=== PATIENT | female | born 1945 | race Caucasian/White ===

== ENCOUNTER → 2017-01-31 | Outpatient (CLI) | payer MEDICARE, BC ==
--- NOTE | 2017-02-01 14:28 | CR ---
EXAM DATE: 01/31/17 PATIENT'S AGE: 71 Patient: ELAINE RIVERA Facility: [place], [place] Site . Site : 1945 Study: XRay Knee Left [id number]/26/2017 9:45:58 AM Ordering Physician: Wolf Barnes Final Report: HISTORY: Pain. Findings: Standing AP and PA views of both knees were obtained with lateral an sunrise views of the left knee. There is mild-moderate decrease in the medial joint spaces of both knees. There is spurring seen at the left medial tibial plateau with minimal subchondral cyst. The left patellofemoral joint space appears preserved. No joint effusion is seen. Impression: [id number] decrease of the medial joint spaces of both knees with mild degenerative change in the left medial joint space, unchanged from prior exam. Dictated by Mei Saini MD @ Feb 01 2017 12:41AM (Electronic Signature) Report Signed by Proxy. NUBIA
== END ==
LOC: MW.CHORTHO 09:02
PROVIDERS: ATTEND Orthopaedic Surgery
DX: M25.562 Pain in left knee (principal); M17.12 Unilateral primary osteoarthritis, left knee
CPT/HCPCS: 20610; 73564-26-LT; 73564-LT; G0463; J1040

== ENCOUNTER → 2017-02-01 | Outpatient (CLI) | payer MEDICARE, BC ==
--- NOTE | 2017-02-01 18:39 | XA ---
Exam Date: 02/01/17 Patient's Age: 71 HEIGHT: 59.5 in WEIGHT: 185.0 lbs INDICATIONS: Back Pain, Currently Menopausal FRACTURES: TREATMENTS: Metoprolol, Pantoprazole, Simvastatin, Venlafaxine ASSESSMENT: The BMD measured at Femur Neck Mean is 0.662 g/cm2 with a T-score of -2.7. This patient is considered osteoporotic according to World Health Organization (WHO) criteria. Fracture risk is high. Pharmacological treatment, if not already prescribed, should be started. A followup bone density test is recommended in one year to monitor response to therapy. The BMD measured at Femur Troch Mean is 0.685 g/cm2 with a T-score of -1.4 is considered moderately low. Fracture risk is moderate. Treatment is advised if there are other risk factors. RESULTS: Site Region Age Classification T-Score BMD AP Spine L1-L4 71.4 Osteopenia -1.9 0.964 g/cm2 Dual Femur Neck Mean 71.4 Osteoporosis -2.7 0.662 g/cm2 Dual Femur Troch Mean 71.4 N/A -1.4 0.685 g/cm2 Dual Femur Total Mean 71.4 Osteopenia -1.7 0.799 g/cm2 World Health Organization - Criteria for post-menopausal, women: Normal: T-Score at or above -1 SD Osteopenia: T-Score between -1 and -2.5 SD Osteoporosis: T-Score at or below -2.5 SD RECOMMENDATION: Pharmacologic treatment recommendations & Initiate pharmacologic treatment: - In those with hip or vertebral (clinical or asymptomatic) fractures - In those with T -scores <-2.5 at the femoral neck, total hip, or lumbar spine by DXA - In postmenopausal women and men age 50 and older with low bone mass (T-score between -1.0 and -2.5, osteopenia) at the femoral neck, total hip, or lumbar spine by DXA and a 10-year hip fracture probability >3 % or a 10-year major osteoporosis-related fracture probability >20% based on the [place]-adapted WHO absolute fracture risk model (Fracture Risk Algorithm (FRAX); www. NOF.org and www.shef.ac.uk/FRAX) FOLLOW UP: People with diagnosed cases of osteoporosis or at high risk for fracture should have regular bone mineral density tests. For patients eligible for Medicare, routine testing is allowed once every 2 years. The testing frequency can be increased to 1 year for patients who have rapidly progressing disease, those who are reviewing or discontinuing medial therapy to restore bone mass, or have additional risk factors. People with diagnosed cases of osteoporosis or osteopenia should be regularly tested for bone mineral density. For patient eligible for Medicare, routine testing is allowed once every 2 years. The testing frequency can be increased to 1 year for patients who have rapidly progressing disease, or for those who are receiving medial therapy to restore bone mass. [facility] -- LO[place] [phone] - FAX: [phone] NUBIA
== END ==
LOC: MW.DI 10:25
PROVIDERS: ATTEND Orthopaedic Surgery
DX: M81.0 Age-related osteoporosis without current pathological fracture (principal)
CPT/HCPCS: 77080; 77080-26

== ENCOUNTER → 2017-02-20 | Outpatient (CLI) | payer MEDICARE, BC | LOC: MW.CHFP 08:00 | PROVIDERS: ATTEND Student in an Organized Health Care Education/Training Program | DX: M81.0 Age-related osteoporosis without current pathological fracture (principal) | CPT/HCPCS: G0463 ==

== ENCOUNTER 2018-02-13 06:43 | Emergency (ER) | payer MEDICARE, BC ==
[2018-02-13] MEDS ORDERED: Ketorolac 30 MG/ML SDV IVPUSH ONE (07:04)
[2018-02-13] MEDS ORDERED: Sodium Chloride 0.9% 10 ML Syringe FLUSH PRN (07:05)
[2018-02-13] MEDS ORDERED: Sodium Chloride 0.9% 2.5 ML Syringe FLUSH PRN (07:05)
[2018-02-13] MEDS ORDERED: Ondansetron 4 MG/2 ML SDV IVPUSH ONE (07:05)
[2018-02-13] MEDS ORDERED: Sodium Chloride 0.9% 500 ML IV ONE (07:06)
[2018-02-13] MEDS ORDERED: Morphine 4 MG/ML Syringe IVPUSH ONE (07:50)
[2018-02-13 08:29] LABS: CHLORIDE,CL 106 mmol/L (98-107); SODIUM,NA 141 mmol/L (136-145)
--- NOTE | 2018-02-13 09:03 | CT ---
CT of the abdomen and pelvis without contrast. HISTORY: Pain TECHNIQUE: Axial CT images were obtained of the abdomen and pelvis without contrast. Coronal and sagi ttal reconstructions obtained. Comparison: 11/09/2014. FINDINGS: The lung bases are clear, no pleural effusion. Stable punctate nodule within the right middle lobe. E mphysematous changes are noted. The liver, spleen, adrenal glands, and pancreas appear unremarkable for noncontrast examination. Chol ecystectomy. There is no bulky retroperitoneal lymphadenopathy. No abdominal ascites. There is a 1 mm obstructing stone within the mid left ureter with mild to moderate proximal hydroneph rosis. The large and small bowel are normal in caliber without evidence of obstruction. The appendix appears normal. Diverticulosis without evidence of diverticulitis. There is no bulky pelvic lymphadenopathy. No free fluid. No free air. The urinary bladder appears normal. Right external iliac stent noted. The visualized osseous structures appear normal. IMPRESSION: 1. Tiny nonobstructing stone within the mid left ureter with mild proximal hydronephrosis. 2. Diverticulosis without evidence of diverticulitis. 3. Pulmonary emphysema.
[2018-02-13] MEDS ORDERED: Alum Hydrox/Mag Hydrox/Simeth 15 ML, Lidocaine 2% 5 ML PO ONE ×2 (09:23)
--- NOTE | 2018-02-13 09:25 | EDM.PDOC ---
ED HPI GENERAL MEDICAL PROBLEM - General Chief Complaint: Flank Pain Stated Complaint: LOWER BACK PAIN Time Seen by Provider: 02/13/18 07:04 Source of Information: Reports: Patient History Limitations: Reports: No Limitations - History of Present Illness INITIAL COMMENTS - FREE TEXT/NARRATIVE: History of present illness: []Patient started having left flank pain radiating to her left groin this morning that feels like a kidney stone which she has had the past. She's had chills but no fevers and has had some nausea and vomiting this morning with the pain. She denies any diarrhea, urinary discomfort or chest pain. Review of systems: As per history of present illness and below otherwise all systems reviewed and negative. Past medical history: As per history of present illness and as reviewed below otherwise noncontributory. Surgical history: As per history of present illness and as reviewed below otherwise noncontributory. Social history: No reported history of drug or alcohol abuse. Family history: As per history of present illness and as reviewed below otherwise noncontributory. Physical exam: General: Well developed, well nourished in NAD HEENT: Atraumatic, normocephalic, pupils reactive, negative for conjunctival pallor or scleral icterus, mucous membranes moist, throat clear, neck supple, nontender, trachea midline. Lungs: Clear to auscultation, breath sounds equal bilaterally, chest nontender. Heart: S1S2, regular, negative for clicks, rubs, or JVD. Abdomen: Soft, nondistended, nontender. Negative for masses or hepatosplenomegaly. Positive left costovertebral tenderness. Pelvis: Stable nontender. Genitourinary: Deferred. Rectal: Deferred. Extremities: Atraumatic, negative for cords or calf pain. Neurovascular unremarkable. Neuro: Awake, alert, oriented. Cranial nerves II through XII unremarkable. Cerebellum unremarkable. Motor and sensory unremarkable throughout. Exam nonfocal. Diagnostics: []CBC and chemistries are normal UA shows too numerous to count red blood cells otherwise negative CT of her abdomen shows 1 mm nonobstructing ureteral stone Therapeutics: []Patient was given IV fluids morphine and Zofran for pain and nausea with improvement and after CT patient developed epigastric pain and was given a GI cocktail with improvement Impression: []Ureterolithiasis with 1 mm left nonobstructing ureteral stone Plan: []Increase fluids follow-up with Dr. Saeed hydrocodone and Zofran for pain return here if symptoms worsen or change Definitive disposition and diagnosis as appropriate pending reevaluation and review of above. left flank Pain Score (Numeric/FACES): 8 - Related Data Allergies Allergy/AdvReac Type Severity Reaction Status Date / Time aspirin Allergy Stomach Verified 02/13/18 06:54 Upset Penicillins Allergy Rash Verified 02/13/18 06:54 Home Meds: Home Meds Metoprolol Tartrate [Lopressor] 25 mg PO Q12HR 04/15/14 [History] Venlafaxine [Effexor XR] 1 tab PO DAILY 04/15/14 [History] Pantoprazole Sodium 1 tab PO ASDIRECTED 11/15/15 [History] Simvastatin [Zocor] 1 tab PO BEDTIME 09/20/16 [History] Past Medical History HEENT History: Reports: Impaired Vision Other HEENT History: wears glasses Cardiovascular History: Reports: Blood Clots/VTE/DVT, CAD, High Cholesterol, Hypertension, Stents Other Cardiovascular History: hx of DVT after angiogram one year ago Respiratory History: Reports: Sleep Apnea, Other (See Below) Other Respiratory History: on CPAP before Gastrointestinal History: Reports: Cholelithiasis, GERD, Hiatal Hernia, Irritable Bowel Syndrome Genitourinary History: Reports: Renal Calculus SHORE MAN History: Reports: Musculoskeletal History: Reports: Arthritis, Back Pain, Chronic, Fracture, Osteoporosis Other Musculoskeletal History: hx of fx elbow, no surgical intervention Neurological History: Reports: None Psychiatric History: Reports: Anxiety Endocrine/Metabolic History: Reports: Obesity/BMI 30+ Hematologic History: Reports: None Immunologic History: Reports: None Oncologic (Cancer) History: Reports: None Dermatologic History: Reports: None - Infectious Disease History Infectious Disease History: Reports: None - Past Surgical History Head Surgeries/Procedures: Reports: None HEENT Surgical History: Reports: Oral Surgery, Tonsillectomy Cardiovascular Surgical History: Reports: Coronary Artery Bypass Female Surgical History: Reports: Hysterectomy, Tubal Ligation Endocrine Surgical History: Reports: None Neurological Surgical History: Reports: None Oncologic Surgical History: Reports: None - History Comment History Comment: denies etoh Social & Family History - Family History Family Medical History: Noncontributory - Tobacco Use Smoking Status *Q: Never Smoker - Caffeine Use Caffeine Use: Reports: Coffee - Recreational Drug Use Recreational Drug Use: No ED ROS GENERAL - Review of Systems Review Of Systems: See Below (See history of present illness) ED EXAM, GI/ABD - Physical Exam Exam: See Below (See history of present illness) Course - Vital Signs Last Recorded V/S: Last Vital Signs Temp 97.5 F 02/13/18 06:56 Pulse 88 02/13/18 06:56 Resp 18 02/13/18 06:56 BP 199/95 H 02/13/18 06:56 Pulse Ox 98 02/13/18 06:56 - Orders/Labs/Meds Orders: Active Orders 24 hr Category Date Time Status UA W/MICROSCOPIC [URIN] Stat Lab 02/13/18 07:18 Ordered Sodium Chloride 0.9% [Saline Flush] Med 02/13/18 07:05 Active 10 ml FLUSH ASDIRECTED PRN Sodium Chloride 0.9% [Saline Flush] Med 02/13/18 07:05 Active 2.5 ml FLUSH ASDIRECTED PRN Saline Lock Insert [OM.PC] Stat Oth 02/13/18 07:05 Ordered Medication Orders Sodium Chloride (Saline Flush) 10 ml FLUSH ASDIRECTED PRN PRN Reason: Keep Vein Open Last Admin: 02/13/18 07:33 Dose: 10 ml Sodium Chloride (Saline Flush) 2.5 ml FLUSH ASDIRECTED PRN PRN Reason: Keep Vein Open Last Admin: 02/13/18 07:29 Dose: 2.5 ml Labs: Laboratory Tests 02/13/18 02/13/18 02/13/18 Range/Units 07:18 07:25 07:25 WBC 8.63 (4.0-11.0) K/uL RBC 5.07 (4.30-5.90) M/uL Hgb 12.8 (12.0-16.0) g/dL Hct 39.8 (36.0-46.0) % MCV 78.5 L (80.0-98.0) fL MCH 25.2 L (27.0-32.0) pg MCHC 32.2 (31.0-37.0) g/dL RDW Std Deviation 45.5 (28.0-62.0) fl RDW Coeff of Jesus 16 H (11.0-15.0) % Plt Count 289 (150-400) K/uL MPV 10.60 (7.40-12.00) fL Neut % (Auto) 70.0 (48.0-80.0) % Lymph % (Auto) 18.9 (16.0-40.0) % Mckenzie % (Auto) 9.4 (0.0-15.0) % Eos % (Auto) 1.2 (0.0-7.0) % Baso % (Auto) 0.5 (0.0-1.5) % Neut # (Auto) 6.1 H (1.4-5.7) K/uL Lymph # (Auto) 1.6 (0.6-2.4) K/uL Mckenzie # (Auto) 0.8 (0.0-0.8) K/uL Eos # (Auto) 0.1 (0.0-0.7) K/uL Baso # (Auto) 0.0 (0.0-0.1) K/uL Nucleated RBC % 0.0 /100WBC Nucleated RBCs # 0 K/uL Sodium 141 (136-145) mmol/L Potassium 4.0 (3.5-5.1) mmol/L Chloride 106 (98-107) mmol/L Carbon Dioxide 25.1 (21.0-32.0) mmol/L BUN 16 (7.0-18.0) mg/dL Creatinine 0.9 (0.6-1.0) mg/dL Est Cr Clr Drug Dosing 63.15 mL/min Estimated GFR (MDRD) > 60.0 ml/min Glucose 150 H (74-106) mg/dL Calcium 9.4 (8.5-10.1) mg/dL Total Bilirubin 0.3 (0.2-1.0) mg/dL AST 13 L (15-37) IU/L ALT 21 (14-63) IU/L Alkaline Phosphatase 136 H (46-116) U/L Total Protein 6.7 (6.4-8.2) g/dL Albumin 3.2 L (3.4-5.0) g/dL Globulin 3.5 (2.0-3.5) g/dL Albumin/Globulin Ratio 0.9 L (1.3-2.8) Urine Color YELLOW Urine Appearance CLEAR Urine pH 5.5 (5.0-8.0) Ur Specific [place] 1.025 (1.001-1.035) Urine Protein 30 (NEGATIVE) mg/dL Urine Glucose (UA) NEGATIVE (NEGATIVE) mg/dL Urine Ketones NEGATIVE (NEGATIVE) mg/dL Urine Occult Blood LARGE H (NEGATIVE) Urine Nitrite NEGATIVE (NEGATIVE) Urine Bilirubin NEGATIVE (NEGATIVE) Urine Urobilinogen 0.2 (<2.0) EU/dL Ur Leukocyte Esterase TRACE (NEGATIVE) Urine RBC TOO NUMBEROUS TO CT H (0-2/HPF) Urine WBC 3-5 (0-5/HPF) Ur Epithelial Cells OCCASIONAL (NONE-FEW) Urine Bacteria RARE (NEGATIVE) Meds: Medications Generic Name Dose Route Start Last Admin Trade Name Freq PRN Reason Stop Dose Admin Sodium Chloride 10 ml 02/13/18 07:05 02/13/18 07:33 Saline Flush FLUSH 10 ml ASDIRECTED PRN Administration Keep Vein Open Sodium Chloride 2.5 ml 02/13/18 07:05 02/13/18 07:29 Saline Flush FLUSH 2.5 ml ASDIRECTED PRN Administration Keep Vein Open Discontinued Medications Generic Name Dose Route Start Last Admin Trade Name Freq PRN Reason Stop Dose Admin Sodium Chloride 500 mls @ 999 mls/hr 02/13/18 07:06 02/13/18 07:28 Normal Saline IV 02/13/18 07:36 999 mls/hr .Bolus ONE Administration Ketorolac Tromethamine 15 mg 02/13/18 07:04 02/13/18 07:28 Toradol IVPUSH 02/13/18 07:05 15 mg ONETIME ONE Administration Morphine Sulfate 4 mg 02/13/18 07:50 02/13/18 08:04 Morphine IVPUSH 02/13/18 07:51 4 mg ONETIME ONE Administration Ondansetron HCl 4 mg 02/13/18 07:05 02/13/18 07:28 Zofran IVPUSH 02/13/18 07:06 4 mg ONETIME ONE Administration Departure - Departure Time of Disposition: 09:24 Disposition: Home, Self-Care 01 Condition: Good Clinical Impression: Ureterolithiasis - Discharge Information Referrals: Chau Bloom MD [Primary Care Provider] - Jayne Saeed MD [Physician] - (Next available appointment) Forms: ED Department Discharge, Interfacility Transfer EMTALA Additional Instructions: The following information is given to patients seen in the emergency department who are being discharged to home. This information is to outline your options for follow-up care. We provide all patients seen in our emergency department with a follow-up referral. The need for follow-up, as well as the timing and circumstances, are variable depending upon the specifics of your emergency department visit. If you don't have a primary care physician on staff, we will provide you with a referral. We always advise you to contact your personal physician following an emergency department visit to inform them of the circumstance of the visit and for follow-up with them and/or the need for any referrals to a consulting specialist. The emergency department will also refer you to a specialist when appropriate. This referral assures that you have the opportunity for follow-up care with a specialist. All of these measure are taken in an effort to provide you with optimal care, which includes your follow-up. Under all circumstances we always encourage you to contact your private physician who remains a resource for coordinating your care. When calling for follow-up care, please make the office aware that this follow-up is from your recent emergency room visit. If for any reason you are refused follow-up, please contact the [facility] Emergency Department at and asked to speak to the emergency department charge nurse. Hydrocodone 5/325 #16 tablets given, Zofran for nausea follow-up with Dr. Saeed - My Orders Last 24 Hours: My Active Orders 02/13/18 07:05 Sodium Chloride 0.9% [Saline Flush] 10 ml FLUSH ASDIRECTED PRN Sodium Chloride 0.9% [Saline Flush] 2.5 ml FLUSH ASDIRECTED PRN Saline Lock Insert [OM.PC] Stat 02/13/18 07:18 UA W/MICROSCOPIC [URIN] Stat - Assessment/Plan Last 24 Hours: My Active Orders 02/13/18 07:05 Sodium Chloride 0.9% [Saline Flush] 10 ml FLUSH ASDIRECTED PRN Sodium Chloride 0.9% [Saline Flush] 2.5 ml FLUSH ASDIRECTED PRN Saline Lock Insert [OM.PC] Stat 02/13/18 07:18 UA W/MICROSCOPIC [URIN] Stat
[2018-02-13 09:49] VITALS: BP 191/96
== END 2018-02-13 09:52 | disposition home or self-care (01) ==
LOC: MW.ED 06:43
DX: N13.2 Hydronephrosis with renal and ureteral calculous obstruction (principal); K57.90 Diverticulosis of intestine, part unspecified, without perforation or abscess without bleeding; I10 Essential (primary) hypertension; E78.00 Pure hypercholesterolemia, unspecified; Z79.899 Other long term (current) drug therapy; Z88.6 Allergy status to analgesic agent; Z88.0 Allergy status to penicillin
CPT/HCPCS: 36415; 74176; 80053; 81001; 85025; 96361; 96374; 96375; 99284; A9270; J1885; J2270; J2405; J7040; 99283

== ENCOUNTER 2021-07-07 04:13 | Emergency (ER) | payer MEDICARE, BC ==
[2021-07-07] MEDS ORDERED: Ondansetron 4 MG/2 ML SDV IVPUSH ONE (04:37)
[2021-07-07] MEDS ORDERED: Ketorolac 15 MG/ML SDV IVPUSH STA (04:45)
[2021-07-07] MEDS ORDERED: cefTRIAXone 1 GM in Premix Bag 1 BAG IV ONE (04:45)
[2021-07-07] MEDS ORDERED: Sodium Chloride 0.9% 1,000 ML IV ONE (04:46)
--- NOTE | 2021-07-07 04:47 | EDM.PDOC ---
ED HPI GENERAL MEDICAL PROBLEM - General Chief Complaint: Abdominal Pain Stated Complaint: BACK PAIN- POSSIBLE KIDNEY INFECTION Time Seen by Provider: 07/07/21 04:30 - History of Present Illness INITIAL COMMENTS - FREE TEXT/NARRATIVE: HISTORY AND PHYSICAL: History of present illness: This is a 75-year-old female who presents ER today complaining of left flank pain and left lower quadrant abdominal pain that started 4 days ago. Patient denies any recent fevers, shakes, chills, nausea, vomiting, diarrhea. Patient does admit to dysuria frequency and urgency. Patient denies hematuria. Patient ports that the pain is colicky in nature. Patient has any chest pain or shortness of breath. Patient reports no history of renal colic in the past. Patient does have a history of CAD in the past, status post bypass. Review of systems: As per history of present illness and below otherwise all systems reviewed and negative. Past medical history: As per history of present illness and as reviewed below otherwise noncontrib utory. Surgical history: As per history of present illness and as reviewed below otherwise noncontributory. Social history: No reported history of drug abuse. Family history: As per history of present illness and as reviewed below otherwise noncontributory. Physical exam: This patient was seen and evaluated during the 2019 SARS-CoV-2 novel coronavirus pandemic period. Community viral transmission is ongoing at time of this encounter and the emergency department is operating under pandemic response procedures. Constitutional: Patient is oriented to person, place, and time. Appears well- developed and well-nourished. No distress. HEENT: Moist mucous membranes Head: Normocephalic and atraumatic Eyes: Right eye exhibits no discharge. Left eye exhibits no discharge. No scleral icterus Neck: Normal range of motion. No tracheal deviation present. Cardiovascular: Normal rate and regular rhythm. Pulmonary: Effort normal, no respiratory distress. Abd: Soft, nondistended, no rebound/guarding, no psoas or obturator signs, no tenderness at Mcberney's point, no Trevizo's sign. Pt does not present with an exam that would be consistent with an acute surgical abdomen at this time. Patient was tenderness palpation her left flank and left lower quadrant. Musculoskeletal: Normal range of motion Neurologic: Alert and oriented to person, place and time. Skin: [place], warm and dry. Psychiatric: Normal mood and affect. Behavior is normal. Judgment and thought content normal. Nursing note and vital signs have been reviewed Diagnostics: CT scan of the abdomen pelvis: Demonstration of a 7.6 mm calculus in the proximal left ureter at the UPJ with associated hydronephrosis. There is a moderate amount of focal thickening and pericolonic inflammatory changes of the sigmoid colon commiserate with low-grade diverticulitis. CBC/CMP within normal limits. Urinalysis reveals a WBC count of 20-30 WBCs per high-power field however there are a significant amount of epithelial cells and there consistent with a likely contamination. Therapeutics: NSS x1 L Ketorolac 15 mg IV Zofran 4 mg IV Rocephin 1 g IV Assessment and plan: 75-year-old female who presents ER today complaining of left leg and left lower quadrant abdominal pain. Patient's urinalysis from earlier today when she saw her primary care physician is consistent with a urinary tract infection. Repeat labs in the ED today revealed that she has a normal CBC, CMP. Patient's urinalysis reveals 20-30 WBCs per high-power field with many epithelial cells and bacteria. This is likely secondary to contaminant. Patient CT scan reveals a high-grade obstruction at 7.6 mm calculus with a proximal left ureter UPJ with associated hydronephrosis. Patient also unfortunately appears to have some inflammatory changes consistent with low- grade diverticulitis. 7 AM: Patient was reevaluated in the ED. Patient reports that her pain is completely resolved and she has been sleeping comfortably after receiving ketorolac in the ED. Patient does not appear to be septic and does not appear to have any fever so I doubt the UA is consistent with a UTI. I do not believe that this is a pyelohydronephrosis. Patient will need to be discharged home on pain medicines, Hytrin, and will also receive antibiotics to treat her diverticulitis. Patient be discharged home with Flagyl and ciprofloxacin since she is allergic to penicillins. Definitive disposition and diagnosis as appropriate pending reevaluation and review of above. left flank Pain Score (Numeric/FACES): 10 - Related Data Allergies Allergy/AdvReac Type Severity Reaction Status Date / Time aspirin Allergy Stomach Verified 07/07/21 04:34 Upset Penicillins Allergy Rash Verified 07/07/21 04:34 Home Meds: Home Meds Metoprolol Tartrate [Lopressor] 25 mg PO BID 04/15/14 [History] Venlafaxine [Effexor XR] 75 mg PO QAM 04/15/14 [History] Pantoprazole Sodium 20 mg PO QAM 11/15/15 [History] Rosuvastatin [Crestor] 20 mg PO DAILY 09/11/18 [History] Acetaminophen [Tylenol Extra Strength] 1,000 mg PO Q6H #100 tablet 09/20/18 [Rx] Docusate Sodium [Colace] 100 mg PO BID #60 cap 09/20/18 [Rx] oxyCODONE 5 mg PO Q4H PRN #40 tablet 09/20/18 [Rx] Nystatin 5 ml PO TID 09/27/18 [History] Ciprofloxacin [Ciprofloxacin HCl] 500 mg PO BID #20 tab 07/07/21 [Rx] Hydrocodone/Acetaminophen [Hydrocodone-Acetamin 5-325 mg] 1 each PO Q6HR PRN #14 tab 07/07/21 [Rx] Ibuprofen 600 mg PO Q6HR PRN #30 tablet 07/07/21 [Rx] Ondansetron [Zofran ODT] 4 mg PO Q6H PRN #12 tab.dis 07/07/21 [Rx] Tamsulosin HCl [Flomax] 0.4 mg PO BEDTIME #7 cap.er.24h 07/07/21 [Rx] metroNIDAZOLE [Flagyl] 500 mg PO Q8H #21 tab 07/07/21 [Rx] Past Medical History HEENT History: Reports: Impaired Vision Other HEENT History: wears glasses, has upper and lower dentures Cardiovascular History: Reports: Blood Clots/VTE/DVT, CAD, High Cholesterol, Hypertension, Stents Respiratory History: Reports: COPD, Sleep Apnea Other Respiratory History: not using CPAP Gastrointestinal History: Reports: Cholelithiasis, Chronic Diarrhea, GERD, Hiatal Hernia, Irritable Bowel Syndrome Genitourinary History: Reports: Renal Calculus REGISTERED NURSES History: Reports: Musculoskeletal History: Reports: Back Pain, Chronic, Fracture, Osteoarthritis, Osteoporosis Other Musculoskeletal History: hx of fx elbow, no surgical intervention Neurological History: Reports: None Psychiatric History: Reports: Anxiety Endocrine/Metabolic History: Reports: Obesity/BMI 30+ Hematologic History: Reports: None Immunologic History: Reports: None Oncologic (Cancer) History: Reports: None Dermatologic History: Reports: None - Infectious Disease History Infectious Disease History: Reports: None - Past Surgical History Musculoskeletal Surgical History: Reports: None, Knee Replacement - History Comment History Comment: denies etoh Social & Family History - Family History Family Medical History: No Pertinent Family History - Caffeine Use Caffeine Use: Reports: Coffee Other Caffeine Use: daily ED ROS GENERAL - Review of Systems Review Of Systems: See Below ED EXAM, GENERAL - Physical Exam Exam: See Below Course - Vital Signs Last Recorded V/S: Last Vital Signs Temp 98.1 F 07/07/21 07:46 Pulse 68 07/07/21 07:46 Resp 18 07/07/21 07:46 BP 171/73 H 07/07/21 07:46 Pulse Ox 97 07/07/21 07:46 - Orders/Labs/Meds Labs: Laboratory Tests 07/07/21 07/07/21 07/07/21 Range/Units 04:30 04:45 04:45 WBC 10.79 (4.0-11.0) K/uL RBC 5.14 (4.30-5.90) M/uL Hgb 14.2 (12.0-16.0) g/dL Hct 44.2 (36.0-46.0) % MCV 86.0 (80.0-98.0) fL MCH 27.6 (27.0-32.0) pg MCHC 32.1 (31.0-37.0) g/dL RDW Std Deviation 44.2 (28.0-62.0) fl RDW Coeff of Jesus 14 (11.0-15.0) % Plt Count 277 (150-400) K/uL MPV 10.60 (7.40-12.00) fL Neut % (Auto) 77.7 (48.0-80.0) % Lymph % (Auto) 13.6 L (16.0-40.0) % [place] % (Auto) 7.7 (0.0-15.0) % Eos % (Auto) 0.7 (0.0-7.0) % Baso % (Auto) 0.3 (0.0-1.5) % Neut # (Auto) 8.4 H (1.4-5.7) K/uL Lymph # (Auto) 1.5 (0.6-2.4) K/uL [place] # (Auto) 0.8 (0.0-0.8) K/uL Eos # (Auto) 0.1 (0.0-0.7) K/uL Baso # (Auto) 0.0 (0.0-0.1) K/uL Sodium 139 (136-145) mmol/L Potassium 3.9 (3.5-5.1) mmol/L Chloride 103 (98-107) mmol/L Carbon Dioxide 23.6 (21.0-32.0) mmol/L BUN 13 (7.0-18.0) mg/dL Creatinine 1.2 H (0.6-1.0) mg/dL Est Cr Clr Drug Dosing 29.10 mL/min Estimated GFR (MDRD) 43.8 ml/min Glucose 152 H (74-106) mg/dL Calcium 8.3 L (8.5-10.1) mg/dL Total Bilirubin 0.6 (0.2-1.0) mg/dL AST 19 (15-37) IU/L ALT 15 (14-63) IU/L Alkaline Phosphatase 117 H (46-116) U/L Total Protein 7.2 (6.4-8.2) g/dL Albumin 2.9 L (3.4-5.0) g/dL Globulin 4.3 H (2.6-4.0) g/dL Albumin/Globulin Ratio 0.7 L (0.9-1.6) Urine Color YELLOW Urine Appearance CLOUDY Urine pH 5.5 (5.0-8.0) Ur Specific [place] >= 1.030 (1.001-1.035) Urine Protein TRACE H (NEGATIVE) mg/dL Urine Glucose (UA) NEGATIVE (NEGATIVE) mg/dL Urine Ketones NEGATIVE (NEGATIVE) mg/dL Urine Occult Blood MODERATE H (NEGATIVE) Urine Nitrite NEGATIVE (NEGATIVE) Urine Bilirubin NEGATIVE (NEGATIVE) Urine Urobilinogen 0.2 (<2.0) EU/dL Ur Leukocyte Esterase SMALL H (NEGATIVE) Urine RBC 4-8 (0-2/HPF) Urine WBC 20-30 (0-5/HPF) Ur Epithelial Cells MANY (NONE-FEW) Calcium Oxalate Crystal FEW (NEGATIVE) Urine Bacteria 2+ H (NEGATIVE) Meds: Medications Discontinued Medications Generic Name Dose Route Start Last Admin Trade Name Freq PRN Reason Stop Dose Admin Ciprofloxacin 500 mg 07/07/21 09:00 07/07/21 07:07 Ciprofloxacin 500 Mg Tab PO 500 mg BID MARYANN Administration Ceftriaxone Sodium/Dextrose 1 50 mls @ 100 mls/hr 07/07/21 04:45 07/07/21 04:53 gm/ Premix IV 07/07/21 05:14 100 mls/hr ONETIME ONE Administration Sodium Chloride 1,000 mls @ 999 mls/hr 07/07/21 04:46 07/07/21 04:52 Normal Saline IV 07/07/21 05:46 999 mls/hr .Bolus ONE Administration Ketorolac Tromethamine 15 mg 07/07/21 04:45 07/07/21 04:53 Ketorolac 15 Mg/Ml Sdv IVPUSH 07/07/21 04:46 15 mg Q6H STA Administration Metronidazole 500 mg 07/07/21 07:00 07/07/21 07:07 Metronidazole 250 Mg Tab PO 07/07/21 07:01 500 mg ONETIME ONE Administration Ondansetron HCl 4 mg 07/07/21 04:37 07/07/21 04:52 Ondansetron 4 Mg/2 Ml Sdv IVPUSH 07/07/21 04:38 4 mg ONETIME ONE Administration Tamsulosin HCl 0.4 mg 07/07/21 07:01 07/07/21 07:07 Tamsulosin 0.4 Mg Cap.Er PO 07/07/21 07:02 0.4 mg ONETIME ONE Administration Departure - Departure Time of Disposition: 07:02 Disposition: Home, Self-Care 01 Condition: Good Clinical Impression: Diverticulitis, Renal colic on left side - Discharge Information Prescriptions: Ciprofloxacin [Ciprofloxacin HCl] 500 mg PO BID #20 tab metroNIDAZOLE [Flagyl] 500 mg PO Q8H #21 tab Tamsulosin HCl [Flomax] 0.4 mg PO BEDTIME #7 cap.er.24h Hydrocodone/Acetaminophen [Hydrocodone-Acetamin 5-325 mg] 1 each PO Q6HR PRN #14 tab PRN Reason: Pain Ibuprofen 600 mg PO Q6HR PRN #30 tablet PRN Reason: Pain Ondansetron [Zofran ODT] 4 mg PO Q6H PRN #12 tab.dis PRN Reason: Nausea Instructions: Diverticulitis, [id number], Renal Colic, [id number], Kidney Stones, [id number] Referrals: Jonathan Telles MD [Primary Care Provider] - Forms: ED Department Discharge Additional Instructions: Your seen and evaluated in the ER today secondary to pain to your left side. Your CT scan reveals that you have a 7.6 mm kidney stone and your ureter on your left side as a sleeve in your kidney. You will be given pain medicine as well as medication to help you with passing your stone called Flomax. Please take your medicine around the clock so that you do not have severe pain. You also be given medicine to help with nausea and vomiting. Please make an appointment to see Dr. Newton Abreu at [facility]. You can make an appointment with him at [phone]. You can also choose to call the urologist at [facility], Dr. Celena Hale, at [phone] for follow-up. Please take your medication as indicated. Please try to see the urologist as soon as possible. You can return to the ED if your pain returns or if you develop any new or concerning symptoms or if you start developing any fevers. Your CT scan also reveals that you have mild sigmoid diverticulitis of your intestine. You will get started on ciprofloxacin and Flagyl which is an anti biotic to help treat that as well. The following information is given to patients seen in the emergency department who are being discharged to home. This information is to outline your options for follow-up care. We provide all patients seen in our emergency department with a follow-up referral. The need for follow-up, as well as the timing and circumstances, are variable depending upon the specifics of your emergency department visit. If you don't have a primary care physician on staff, we will provide you with a referral. We always advise you to contact your personal physician following an emergency department visit to inform them of the circumstance of the visit and for follow-up with them and/or the need for any referrals to a consulting specialist. The emergency department will also refer you to a specialist when appropriate. This referral assures that you have the opportunity for follow-up care with a specialist. All of these measure are taken in an effort to provide you with optimal care, which includes your follow-up. Under all circumstances we always encourage you to contact your private physician who remains a resource for coordinating your care. When calling for follow-up care, please make the office aware that this follow-up is from your recent emergency room visit. If for any reason you are refused follow-up, please contact the [facility] Emergency Department at and asked to speak to the emergency department charge nurse. [facility] - Primary Care [address] [place] [id number] [facility] [address] [place] [id number]
[2021-07-07 05:33] LABS: CARBON DIOXIDE,CO2 23.6 mmol/L (21.0-32.0); POTASSIUM,K 3.9 mmol/L (3.5-5.1)
--- NOTE | 2021-07-07 06:08 | CT ---
Indication: Left lower quadrant abdominal and left flank pain Technique: Volumetric multidetector CT images of the abdomen and pelvis were without the administration of intravenous contrast. Comparison: CT abdomen and pelvis without contrast February 13, 2018 Findings: The lung bases are clear. The liver is normal in attenuation without intrahepatic biliary ductal dilatation. There is prior cholecystectomy. There is mild to moderate breast for dilatation of the common bile duct. The spleen is normal in attenuation and size. The stomach and duodenum are grossly unremarkable. The pancreas is normal in attenuation without significant atrophy. The adrenal glands are unremarkable. There is left-sided hydronephrosis and hydroureter with demonstration of a calculus measuring 7.6 millimeters seen within the proximal left ureter at the ureteropelvic junction. There is moderate stool seen throughout the colon with focal segmental thickening and pericolonic inflammatory change commensurate with diverticulitis. The appendix is unremarkable. There is no significant mesenteric, retroperitoneal, or pelvic sidewall lymph nodes. The aorta is nonaneurysmal. There is no significant atherosclerotic disease appreciated. There is prior hysterectomy, otherwise the pelvic viscera are grossly within normal limits. There is no free fluid or free air. The anterior abdominal wall is intact without significant hernias. The lumbar vertebral body heights are grossly maintained with minimal anterolisthesis of L4 on L5. There is moderate facet arthrosis. Impression: Demonstration of a 7.6 millimeter calculus seen in the proximal left ureter at the ureteropelvic junction with associated hydronephrosis. Moderate focal thickening and pericolonic inflammatory change of the sigmoid colon commensurate with low-grade diverticulitis. No additional acute intra-abdominal abnormalities are appreciated. Please note that all CT scans at this facility use dose modulation, iterative reconstruction, and/or weight-based dosing when appropriate to reduce radiation dose to as low as reasonably achievable. Dictated by Gary Azul MD @ 07/07/2021 6:06:07 AM (Electronically Signed)
[2021-07-07 06:59] VITALS: PULSE 68
[2021-07-07] MEDS ORDERED: metroNIDAZOLE 250 MG Tab PO ONE (07:00)
[2021-07-07] MEDS ORDERED: Tamsulosin 0.4 MG Cap.ER PO ONE (07:01)
[2021-07-07 07:54] VITALS: BP 171/73
[2021-07-07] MEDS ORDERED: Ciprofloxacin 500 MG Tab PO SCH (09:00)
== END 2021-07-07 07:46 | disposition home or self-care (01) ==
LOC: MW.ED 04:13
DX: N13.2 Hydronephrosis with renal and ureteral calculous obstruction (principal); K57.32 Diverticulitis of large intestine without perforation or abscess without bleeding; I25.10 Atherosclerotic heart disease of native coronary artery without angina pectoris; E78.00 Pure hypercholesterolemia, unspecified; I10 Essential (primary) hypertension; J44.9 Chronic obstructive pulmonary disease, unspecified; E66.9 Obesity, unspecified; Z95.5 Presence of coronary angioplasty implant and graft; Z88.0 Allergy status to penicillin; Z88.8 Allergy status to other drugs, medicaments and biological substances; Z86.718 Personal history of other venous thrombosis and embolism; Z68.37 Body mass index [BMI] 37.0-37.9, adult
CPT/HCPCS: 36415; 74176; 80053; 81001; 85025; 96365; 96375; 99284; A9270; J0696; J1885; J2405; J7030

== ENCOUNTER 2021-08-12 18:13 | Emergency (ER) | payer MEDICARE, BC | END 2021-08-12 19:07 | disposition left against medical advice (07) | LOC: MW.ED 18:13 | DX: Z53.21 Procedure and treatment not carried out due to patient leaving prior to being seen by health care provider (principal) ==

== ENCOUNTER 2021-08-13 10:34 | Emergency (ER) | payer MEDICARE, BC ==
[2021-08-13] MEDS ORDERED: Sodium Chloride 0.9% 2.5 ML Syringe FLUSH PRN (10:59)
[2021-08-13] MEDS ORDERED: Sodium Chloride 0.9% 10 ML Syringe FLUSH PRN (10:59)
[2021-08-13] MEDS ORDERED: Ketorolac 30 MG/ML SDV IVPUSH ONE (11:07)
[2021-08-13] MEDS ORDERED: Ondansetron 4 MG/2 ML SDV IVPUSH ONE (11:07)
[2021-08-13] MEDS ORDERED: Sodium Chloride 0.9% 1,000 ML IV ONE ×2 (11:08→12:17)
[2021-08-13] MEDS ORDERED: Acetaminophen 500 MG Tab PO ONE (11:08)
--- NOTE | 2021-08-13 11:14 | EDM.PDOC ---
ED HPI GENERAL MEDICAL PROBLEM - General Chief Complaint: Abdominal Pain Stated Complaint: NAUSEA, BODY ACHES Time Seen by Provider: 08/13/21 10:38 Source of Information: Reports: Patient History Limitations: Reports: No Limitations - History of Present Illness INITIAL COMMENTS - FREE TEXT/NARRATIVE: HISTORY AND PHYSICAL: History of present illness: Patient is a 75-year-old female, with a history of coronary artery disease status post single-vessel bypass, hypertension, hyperlipidemia, COPD, prior DVT, who presents emergency room today with concern of fever, generalized body aches, and nausea x2 days. Patient states the generalized body aches are most bothersome to her and states that she did take 1000 mg of Tylenol at midnight last night and has not taken any additional medications. Patient also notes that she has a stuffy/runny nose. Patient states that she is vaccinated for Covid with Moderna and has received both doses but is concerned that she may have COVID-19. Patient did have a recent kidney stone and diverticulitis that she was evaluated for on 07/07/2021 in our emergency room. Patient states that she followed up with the urologist who removed the stone and states that since taking the antibiotics for the diverticulitis, her symptoms have completely resolved. Patient denies any abdominal pain today. Patient denies any shortness of breath or chest pain. Patient denies chest pain, shortness of breath, or cough. Denies headache, neck stiff ness, change in vision, syncope, or near syncope. Denies nausea, vomiting, abdominal pain, diarrhea, constipation, or dysuria. Has not noted any blood in urine or stool. Patient has been eating and drinking appropriately. Review of systems: As per history of present illness and below otherwise all systems reviewed and negative. Past medical history: As per history of present illness and as reviewed below otherwise noncontributory. Surgical history: As per history of present illness and as reviewed below otherwise noncontributory. Social history: See social history for further information Family history: As per history of present illness and as reviewed below otherwise noncontributory. Physical exam: General: Patient is alert, oriented, and in no acute distress. Patient laying comfortably on exam table. Patient is febrile at 101.3, mildly tachycardic at 110s, otherwise vitally stable and reviewed by me. HEENT: Atraumatic, normocephalic, pupils equal and reactive bilaterally, negative for conjunctival pallor or scleral icterus, mucous membranes moist, throat clear, neck supple, nontender, trachea midline. No drooling or trismus noted. No meningeal signs. No hot potato voice noted. Lungs: Clear to auscultation, breath sounds equal bilaterally, chest nontender. Heart: S1S2, regular rate and rhythm without overt murmur Abdomen: Soft, nondistended, nontender. Negative for masses or hepatosplenomegaly. Negative for costovertebral tenderness. Pelvis: Stable nontender. Genitourinary: Deferred. Rectal: Deferred. Skin: Intact, warm, dry. No lesions or rashes noted. Extremities: Atraumatic, negative for cords or calf pain. Neurovascular unremarkable. Neuro: Awake, alert, oriented. Cranial nerves II through XII unremarkable. Cerebellum unremarkable. Motor and sensory unremarkable throughout. Exam nonfocal. Medical Decision Making: Patient is a 75-year-old female, with a history of COPD, hypertension, hyperlipidemia, prior DVT, coronary artery disease status post single-vessel bypass, who presents emergency room today with concern of generalized body aches, fever, and nausea x2 days. Upon arrival to the ED, patient is febrile one 1.3, mildly tachycardic 110s on exam, otherwise is vitally stable and comfortable on exam. Exam is otherwise unremarkable. Will obtain COVID-19 testing, basic labwork, provide therapeutics for patient's fever today, and reassess patient. See Dr. Hansen's dictation for specific EKG interpretation. However, normal sinus rhythm without STEMI. CBC does show mild thrombocytopenia with platelets at 146, otherwise mild derangements of CBC unremarkable. CMP does show elevation of glucose at 170, otherwise mild derangements of CMP unremarkable. Troponin negative. Influenza and Covid negative. Urinalysis does show positive nitrite, positive leukocyte esterase with too many to count red blood cells and 50-60 white blood cells with 2+ bacteria, concerning for acute urinary tract infection. Given patient's tachycardia and fever on exam, concern for SIRS with a possible acute pyelonephritis. Given patient's recent history of stent placement with ureterolithiasis, will obtain abdominal pelvic CT scan with and without contrast. Patient is allergic to penicillins and cephalosporins. Patient also has severe QT prolonging concern with her medications and ciprofloxacin so will give a Carbapenem. We do not have a imipenem here at our pharmacy, but spoke to the pharmacist who agrees that meropenem will provide a similar coverage. We will also obtain a lactate and 2 blood cultures before antibiotics. Patient still receiving initial fluid bolus. Abdominal pelvic CT shows previously noted proximal left ureteral stone is no longer present. Persistent left hydroureteronephrosis with adjacent stranding. Normal parenchymal enhancement of both kidneys without evidence of pyelonephritis or abscess. Interval resolution of sigmoid diverticulitis. I did call and speak to patient's urologist at [facility] in [place], Dr. Cuevas, thoroughly discussed patient's case. He is concerned as patient did have a stricture when he placed the first stent and is concerned that her ureters not properly draining and therefore will not properly treat the infection with just antibiotics alone. He recommends transfer as patient will likely need a stent for the stricture that he had seen on her for stent placement. I did speak to the hospitalist on-call for [facility], Dr. Tubbs and thoroughly discussed patient's case. Accepting of transfer. EMS is delayed at this time for 5-6 hours. EMS is even further delayed. At this time, due to uncertain ETA for EMS, will fly patient. Flight is at bedside and patient is discharged in stable condition to flight. Diagnostics: EKG, CBC, CMP, UA, Trop, COVID/Flu, Lipase, Abd/Pelvic ct w cont, Lactate, Blood cultures x 2 Therapeutics: NS, Zofran, Toradol, Tylenol, Meropenem Impression: Acute pyelonephritis, left Sepsis Left hydronephrosis Plan: Transfer to Dr. Tubbs, hospitalist at [facility] via EMS Definitive disposition and diagnosis as appropriate pending reevaluation and review of above. - Related Data Allergies Allergy/AdvReac Type Severity Reaction Status Date / Time aspirin Allergy Stomach Verified 08/13/21 10:53 Upset cefazolin Allergy Itching Verified 08/13/21 12:06 Penicillins Allergy Rash Verified 07/07/21 04:34 Home Meds: Home Meds Metoprolol Tartrate [Lopressor] 25 mg PO BID 04/15/14 [History] Venlafaxine [Effexor XR] 75 mg PO QAM 04/15/14 [History] Pantoprazole Sodium 20 mg PO QAM 11/15/15 [History] Rosuvastatin [Crestor] 20 mg PO DAILY 09/11/18 [History] Acetaminophen [Tylenol Extra Strength] 1,000 mg PO Q6H #100 tablet 09/20/18 [Rx] Docusate Sodium [Colace] 100 mg PO BID #60 cap 09/20/18 [Rx] oxyCODONE 5 mg PO Q4H PRN #40 tablet 09/20/18 [Rx] Nystatin 5 ml PO TID 09/27/18 [History] Ciprofloxacin [Ciprofloxacin HCl] 500 mg PO BID #20 tab 07/07/21 [Rx] Hydrocodone/Acetaminophen [Hydrocodone-Acetamin 5-325 mg] 1 each PO Q6HR PRN #14 tab 07/07/21 [Rx] Ibuprofen 600 mg PO Q6HR PRN #30 tablet 07/07/21 [Rx] Ondansetron [Zofran ODT] 4 mg PO Q6H PRN #12 tab.dis 07/07/21 [Rx] Tamsulosin HCl [Flomax] 0.4 mg PO BEDTIME #7 cap.er.24h 07/07/21 [Rx] metroNIDAZOLE [Flagyl] 500 mg PO Q8H #21 tab 07/07/21 [Rx] Past Medical History HEENT History: Reports: Impaired Vision Other HEENT History: wears glasses, has upper and lower dentures Cardiovascular History: Reports: Blood Clots/VTE/DVT, CAD, High Cholesterol, Hypertension, Stents Respiratory History: Reports: COPD, Sleep Apnea Other Respiratory History: not using CPAP Gastrointestinal History: Reports: Cholelithiasis, Chronic Diarrhea, GERD, Hiatal Hernia, Irritable Bowel Syndrome Genitourinary History: Reports: Renal Calculus [employer] History: Reports: Musculoskeletal History: Reports: Back Pain, Chronic, Fracture, Osteoarthritis, Osteoporosis Other Musculoskeletal History: hx of fx elbow, no surgical intervention Neurological History: Reports: None Psychiatric History: Reports: Anxiety Endocrine/Metabolic History: Reports: Obesity/BMI 30+ 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 Pump 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 [employer]ement[employer] Folder: None Hematologic History: Reports: None Immunologic History: Reports: None Oncologic (Cancer) History: Reports: None Dermatologic History: Reports: None - Infectious Disease History Infectious Disease History: Reports: None - Past Surgical History Head Surgeries/Procedures: Reports: None HEENT Surgical History: Reports: Tonsillectomy, Other (See Below) Other HEENT Surgeries/Procedures: hx of right ear Stapendectomy Cardiovascular Surgical History: Reports: Coronary Artery Bypass, Other (See Below) Other Cardiovascular Surgeries/Procedures: right femoral stent Respiratory Surgical History: Reports: None GI Surgical History: Reports: Cholecystectomy, Other (See Below) Other GI Surgeries/Procedures: hx of Vagotomy and Pyloroplasty Female Surgical History: Reports: Hysterectomy, Lithotripsy/ESWL, Tubal Ligation Endocrine Surgical History: Reports: None Neurological Surgical History: Reports: None Musculoskeletal Surgical History: Reports: None, Knee Replacement Oncologic Surgical History: Reports: None - History Comment History Comment: denies etoh Social & Family History - Family History Family Medical History: No Pertinent Family History - Tobacco Use Tobacco Use Status *Q: Former Tobacco User Used Tobacco, but Quit: Yes Month/Year Tobacco Last Used: 2009 - Caffeine Use Caffeine Use: Reports: Soda Other Caffeine Use: daily ED ROS GENERAL - Review of Systems Review Of Systems: Comprehensive ROS is negative, except as noted in HPI. ED EXAM, GENERAL - Physical Exam Exam: See Below (see dictation) Course - Vital Signs Last Recorded V/S: Last Vital Signs Temp 99.1 F 08/13/21 17:05 Pulse 97 08/13/21 17:05 Resp 18 08/13/21 10:53 BP 154/79 H 08/13/21 17:05 Pulse Ox 94 L 08/13/21 17:05 - Orders/Labs/Meds Orders: Active Orders 24 hr Category Date Time Status CULTURE BLOOD [BC] Stat Lab 08/13/21 11:50 Received CULTURE BLOOD [BC] Stat Lab 08/13/21 11:57 Received CULTURE URINE [MREF] Stat Lab 08/13/21 11:10 Received Sodium Chloride 0.9% [Saline Flush] Med 08/13/21 10:59 Active 10 ml FLUSH ASDIRECTED PRN Sodium Chloride 0.9% [Saline Flush] Med 08/13/21 10:59 Active 2.5 ml FLUSH ASDIRECTED PRN Blood Culture x2 Reflex Set [OM.PC] Stat Oth 08/13/21 11:38 Ordered Saline Lock Insert [OM.PC] Stat Oth 08/13/21 10:59 Ordered Medication Orders Sodium Chloride (Sodium Chloride 0.9% 10 Ml Syringe) 10 ml FLUSH ASDIRECTED PRN PRN Reason: Keep Vein Open Last Admin: 08/13/21 11:04 Dose: 10 ml Documented by: STRUALA Sodium Chloride (Sodium Chloride 0.9% 2.5 Ml Syringe) 2.5 ml FLUSH ASDIRECTED PRN PRN Reason: Keep Vein Open Last Admin: 08/13/21 11:04 Dose: 2.5 ml Documented by: ARON Labs: Laboratory Tests 08/13/21 08/13/21 08/13/21 Range/Units 10:54 11:02 11:02 WBC 9.11 (4.0-11.0) K/uL RBC 4.85 (4.30-5.90) M/uL Hgb 13.6 (12.0-16.0) g/dL Hct 41.7 (36.0-46.0) % MCV 86.0 (80.0-98.0) fL MCH 28.0 (27.0-32.0) pg MCHC 32.6 (31.0-37.0) g/dL RDW Std Deviation 52.2 (28.0-62.0) fl RDW Coeff of Jesus 17 H (11.0-15.0) % Plt Count 146 L (150-400) K/uL MPV 9.80 (7.40-12.00) fL Neut % (Auto) 82.6 H (48.0-80.0) % Lymph % (Auto) 7.4 L (16.0-40.0) % [place] % (Auto) 9.9 (0.0-15.0) % Eos % (Auto) 0.0 (0.0-7.0) % Baso % (Auto) 0.1 (0.0-1.5) % Neut # (Auto) 7.5 H (1.4-5.7) K/uL Lymph # (Auto) 0.7 (0.6-2.4) K/uL [place] # (Auto) 0.9 H (0.0-0.8) K/uL Eos # (Auto) 0.0 (0.0-0.7) K/uL Baso # (Auto) 0.0 (0.0-0.1) K/uL Nucleated RBC % 0.0 /100WBC Nucleated RBCs # 0 K/uL Sodium (136-145) mmol/L Potassium (3.5-5.1) mmol/L Chloride (98-107) mmol/L Carbon Dioxide (21.0-32.0) mmol/L BUN (7.0-18.0) mg/dL Creatinine (0.6-1.0) mg/dL Est Cr Clr Drug Dosing Estimated GFR (MDRD) ml/min Glucose (74-106) mg/dL Lactic Acid (0.4-2.0) mmol/L Calcium (8.5-10.1) mg/dL Total Bilirubin (0.2-1.0) mg/dL AST (15-37) IU/L ALT (14-63) IU/L Alkaline Phosphatase (46-116) U/L Troponin I < 0.050 (0.000-0.056) ng/mL Total Protein (6.4-8.2) g/dL Albumin (3.4-5.0) g/dL Globulin (2.6-4.0) g/dL Albumin/Globulin Ratio (0.9-1.6) Lipase (73-393) U/L Urine Color Urine Appearance Urine pH (5.0-8.0) Ur Specific [place] (1.001-1.035) Urine Protein (NEGATIVE) mg/dL Urine Glucose (UA) (NEGATIVE) mg/dL Urine Ketones (NEGATIVE) mg/dL Urine Occult Blood (NEGATIVE) Urine Nitrite (NEGATIVE) Urine Bilirubin (NEGATIVE) Urine Urobilinogen (<2.0) EU/dL Ur Leukocyte Esterase (NEGATIVE) Urine RBC (0-2/HPF) Urine WBC (0-5/HPF) Ur Epithelial Cells (NONE-FEW) Urine Bacteria (NEGATIVE) Influenza Type A RNA NEGATIVE (NEGATIVE) Influenza Type B RNA NEGATIVE (NEGATIVE) SARS-CoV-2 RNA (JOSE) NEGATIVE (NEGATIVE) 08/13/21 08/13/21 08/13/21 Range/Units 11:07 11:10 11:50 WBC (4.0-11.0) K/uL RBC (4.30-5.90) M/uL Hgb (12.0-16.0) g/dL Hct (36.0-46.0) % MCV (80.0-98.0) fL MCH (27.0-32.0) pg MCHC (31.0-37.0) g/dL RDW Std Deviation (28.0-62.0) fl RDW Coeff of Jesus (11.0-15.0) % Plt Count (150-400) K/uL MPV (7.40-12.00) fL Neut % (Auto) (48.0-80.0) % Lymph % (Auto) (16.0-40.0) % [place] % (Auto) (0.0-15.0) % Eos % (Auto) (0.0-7.0) % Baso % (Auto) (0.0-1.5) % Neut # (Auto) (1.4-5.7) K/uL Lymph # (Auto) (0.6-2.4) K/uL [place] # (Auto) (0.0-0.8) K/uL Eos # (Auto) (0.0-0.7) K/uL Baso # (Auto) (0.0-0.1) K/uL Nucleated RBC % /100WBC Nucleated RBCs # K/uL Sodium 136 (136-145) mmol/L Potassium 3.6 (3.5-5.1) mmol/L Chloride 101 (98-107) mmol/L Carbon Dioxide 25.8 (21.0-32.0) mmol/L BUN 11 (7.0-18.0) mg/dL Creatinine 1.0 (0.6-1.0) mg/dL Est Cr Clr Drug Dosing TNP Estimated GFR (MDRD) 54.1 ml/min Glucose 170 H (74-106) mg/dL Lactic Acid 0.9 (0.4-2.0) mmol/L Calcium 8.2 L (8.5-10.1) mg/dL Total Bilirubin 0.8 (0.2-1.0) mg/dL AST 10 L (15-37) IU/L ALT 17 (14-63) IU/L Alkaline Phosphatase 107 (46-116) U/L Troponin I (0.000-0.056) ng/mL Total Protein 6.7 (6.4-8.2) g/dL Albumin 2.6 L (3.4-5.0) g/dL Globulin 4.1 H (2.6-4.0) g/dL Albumin/Globulin Ratio 0.6 L (0.9-1.6) Lipase 66 L (73-393) U/L Urine Color DARK YELLOW Urine Appearance CLOUDY Urine pH 5.5 (5.0-8.0) Ur Specific [place] 1.025 (1.001-1.035) Urine Protein 30 H (NEGATIVE) mg/dL Urine Glucose (UA) NEGATIVE (NEGATIVE) mg/dL Urine Ketones 15 H (NEGATIVE) mg/dL Urine Occult Blood LARGE H (NEGATIVE) Urine Nitrite POSITIVE H (NEGATIVE) Urine Bilirubin SMALL H (NEGATIVE) Urine Urobilinogen 0.2 (<2.0) EU/dL Ur Leukocyte Esterase SMALL H (NEGATIVE) Urine RBC TOO NUMEROUS TO CT H (0-2/HPF) Urine WBC 50-60 (0-5/HPF) Ur Epithelial Cells MANY (NONE-FEW) Urine Bacteria 2+ H (NEGATIVE) Influenza Type A RNA (NEGATIVE) Influenza Type B RNA (NEGATIVE) SARS-CoV-2 RNA (JOSE) (NEGATIVE) Meds: Medications Generic Name Dose Route Start Last Admin Trade Name Nohelia PRN Reason Stop Dose Admin Sodium Chloride 10 ml 08/13/21 10:59 08/13/21 11:04 Sodium Chloride 0.9% 10 Ml Syringe FLUSH 10 ml ASDIRECTED PRN Administration Keep Vein Open Sodium Chloride 2.5 ml 08/13/21 10:59 08/13/21 11:04 Sodium Chloride 0.9% 2.5 Ml Syringe FLUSH 2.5 ml ASDIRECTED PRN Administration Keep Vein Open Discontinued Medications Generic Name Dose Route Start Last Admin Trade Name Nohelia PRN Reason Stop Dose Admin Acetaminophen 1,000 mg 08/13/21 11:08 08/13/21 11:47 Acetaminophen 500 Mg Tab PO 08/13/21 11:09 1,000 mg ONETIME ONE Administration Sodium Chloride 1,000 mls @ 999 mls/hr 08/13/21 11:08 08/13/21 11:46 Normal Saline IV 08/13/21 12:08 999 mls/hr STAT ONE Administration Ceftriaxone Sodium/Dextrose 1 50 mls @ 100 mls/hr 08/13/21 11:38 08/13/21 17:31 gm/ Premix IV 08/13/21 12:07 Not Given ONETIME ONE Meropenem 1 gm/ Sodium 100 mls @ 200 mls/hr 08/13/21 12:02 08/13/21 17:30 Chloride IV 08/13/21 12:31 Not Given ONETIME ONE Meropenem/Sodium Chloride 1 gm 50 mls @ 100 mls/hr 08/13/21 12:15 08/13/21 12:51 / Premix IV 08/13/21 12:31 100 mls/hr ONETIME ONE Administration Sodium Chloride 1,000 mls @ 600 mls/hr 08/13/21 12:17 08/13/21 13:32 Normal Saline IV 08/13/21 13:56 600 mls/hr STAT ONE Administration Iopamidol 100 ml 08/13/21 12:26 08/13/21 12:27 Iopamidol 755 Mg/Ml 500 Ml Multipack Bottle IVPUSH 08/13/21 12:27 100 ml ONETIME STA Administration Ketorolac Tromethamine 30 mg 08/13/21 11:07 08/13/21 11:47 Ketorolac 30 Mg/Ml Sdv IVPUSH 08/13/21 11:08 30 mg ONETIME ONE Administration Ondansetron HCl 4 mg 08/13/21 11:07 08/13/21 11:47 Ondansetron 4 Mg/2 Ml Sdv IVPUSH 08/13/21 11:08 4 mg ONETIME ONE Administration Departure - Departure Time of Disposition: 15:09 Disposition: DC/[facility]fer to [facility] Clinical Impression: Acute pyelonephritis, Sepsis, Hydronephrosis, left - Discharge Information Referrals: Jonathan Telles MD [Primary Care Provider] - Forms: ED Department Discharge Sepsis Event Note (ED) - Evaluation Sepsis Screening Result: No Definite Risk - Focused Exam Vital Signs: Vital Signs Temp Temp Temp Pulse Resp BP Pulse Ox 08/13/21 17:05 99.1 F 97 154/79 H 94 L 08/13/21 16:05 96 149/49 H 94 L 08/13/21 15:05 90 146/59 H 93 L 08/13/21 14:05 89 142/56 H 96 08/13/21 13:07 94 145/54 H 93 L 08/13/21 12:17 98.4 F 08/13/21 11:58 99 160/61 H 95 08/13/21 11:47 103.4 F H 08/13/21 10:53 101.3 F H 99.1 F 108 H 18 176/64 H 97 - My Orders Last 24 Hours: My Active Orders 08/13/21 10:59 Sodium Chloride 0.9% [Saline Flush] 10 ml FLUSH ASDIRECTED PRN Sodium Chloride 0.9% [Saline Flush] 2.5 ml FLUSH ASDIRECTED PRN Saline Lock Insert [OM.PC] Stat 08/13/21 11:10 CULTURE URINE [MREF] Stat 08/13/21 11:38 Blood Culture x2 Reflex Set [OM.PC] Stat 08/13/21 11:50 CULTURE BLOOD [BC] Stat 08/13/21 11:57 CULTURE BLOOD [BC] Stat - Assessment/Plan Last 24 Hours: My Active Orders 08/13/21 10:59 Sodium Chloride 0.9% [Saline Flush] 10 ml FLUSH ASDIRECTED PRN Sodium Chloride 0.9% [Saline Flush] 2.5 ml FLUSH ASDIRECTED PRN Saline Lock Insert [OM.PC] Stat 08/13/21 11:10 CULTURE URINE [MREF] Stat 08/13/21 11:38 Blood Culture x2 Reflex Set [OM.PC] Stat 08/13/21 11:50 CULTURE BLOOD [BC] Stat 08/13/21 11:57 CULTURE BLOOD [BC] Stat
--- NOTE | 2021-08-13 11:26 | PCM.EKG ---
#1 Interpretation EKG Interpretation Comments: EKG 08/13/2021 at 11:18 AM shows sinus tachycardia with a heart rate of 106 DC interval 126 and Carlotta 62 the QRS shows late transition the are in the precordium there is slight ST depression in V3 through 6. Compared to 09/27/[address] depression in lateral leads is more pronounced and now also present in the inferior leads. Impression cannot rule out inferolateral ischemia.
[2021-08-13 11:37] LABS: BLOOD UREA NITROGEN,BUN 11 mg/dL (7.0-18.0); CARBON DIOXIDE,CO2 25.8 mmol/L (21.0-32.0); CHLORIDE,CL 101 mmol/L (98-107); GLUCOSE RANDOM 170 mg/dL (74-106); LIPASE 66 U/L (73-393); POTASSIUM,K 3.6 mmol/L (3.5-5.1); SODIUM,NA 136 mmol/L (136-145)
[2021-08-13] MEDS ORDERED: cefTRIAXone 1 GM in Premix Bag 1 BAG IV ONE (11:38)
[2021-08-13 11:44] LABS: CORONAVIRUS COVID-19 NAA NEGATIVE (NEGATIVE); INFLUENZA A NAA NEGATIVE (NEGATIVE); INFLUENZA B NAA NEGATIVE (NEGATIVE)
[2021-08-13] MEDS ORDERED: Meropenem 1 GM in Sodium Chloride 0.9% 100 ML IV ONE (12:02)
[2021-08-13] MEDS ORDERED: Meropenem Premix 1 GM in Premix Bag 1 BAG IV ONE (12:15)
[2021-08-13] MEDS ORDERED: Iopamidol 755 MG/ML 500 ML Multipack Bottle IVPUSH STA (12:26)
--- NOTE | 2021-08-13 13:06 | CT ---
Indication: recent urolithiasis with stent removed with sepsis/UTI/hematoma Technique: Pre and post-contrast CT of the abdomen and pelvis performed. 100 cc Isovue 370 intravenous contrast. Please note that all CT scans at this facility use dose modulation, iterative reconstruction, and/or weight-based dosing when appropriate to reduce radiation dose to as low as reasonably achievable. Comparison: 07.07.21 Findings: The previously noted stone in the proximal left ureter is no longer present. There is persistent left hydroureteronephrosis with stranding adjacent to left renal collecting system. No solid renal mass. Normal right kidney. Adrenal glands normal. No bladder stone. Interval resolution of inflammatory changes about the mid sigmoid colon compared to the prior examination. No abscess or disseminated free air. No small bowel obstruction. The uterus appears surgically absent. No adnexal mass. Status post cholecystectomy with normal postoperative appearance of the common bile duct. No pancreatic lesion. Spleen normal. No suspicious intrahepatic mass. Cystic changes in the liver adjacent to the gallbladder fossa, an incidental finding. Small hiatal hernia. COPD/emphysema. No compression fracture. Vascular calcifications. Impression: Previously noted proximal left ureteral stone is no longer present. Persistent left hydroureteronephrosis and adjacent stranding. Normal parenchymal enhancement of both kidneys without evidence of pyelonephritis or abscess. Interval resolution of sigmoid diverticulitis. Please note that all CT scans at this facility use dose modulation, iterative reconstruction, and/or weight-based dosing when appropriate to reduce radiation dose to as low as reasonably achievable. Dictated by Chau Patel MD @ 08/13/2021 1:06:18 PM (Electronically Signed)
[2021-08-13 19:12] VITALS: BP 103/84; PULSE 98
== END 2021-08-13 17:45 ==
LOC: MW.ED 10:34
DX: A41.9 Sepsis, unspecified organism (principal); N10 Acute pyelonephritis; N13.30 Unspecified hydronephrosis; I10 Essential (primary) hypertension; I25.10 Atherosclerotic heart disease of native coronary artery without angina pectoris; E78.00 Pure hypercholesterolemia, unspecified; K21.9 Gastro-esophageal reflux disease without esophagitis; J44.9 Chronic obstructive pulmonary disease, unspecified; M19.90 Unspecified osteoarthritis, unspecified site; E66.9 Obesity, unspecified; Z87.891 Personal history of nicotine dependence; Z88.6 Allergy status to analgesic agent; Z88.1 Allergy status to other antibiotic agents; Z88.0 Allergy status to penicillin; Z79.899 Other long term (current) drug therapy; Z20.822 Contact with and (suspected) exposure to COVID-19
CPT/HCPCS: 0240U; 36415; 74178; 80053; 81001; 83605; 83690; 84484; 85025; 87040; 87086; 93005; 96365; 96375; 99285; A9270; J1885; J2185; J2405; J7030; Q9967; 87088; 87186

== ENCOUNTER 2021-09-22 22:23 | Emergency (ER) | payer MEDICARE, BC ==
--- NOTE | 2021-09-22 22:40 | EDM.PDOC ---
ED HPI GENERAL MEDICAL PROBLEM - General Chief Complaint: Respiratory Problem Stated Complaint: SOB, FEVER Time Seen by Provider: 09/22/21 22:34 - History of Present Illness INITIAL COMMENTS - FREE TEXT/NARRATIVE: History of present illness: [] Patient is here for weakness and shortness of breath. After 2 inhalers of albuterol tonight she is slightly improved. Tonight she was extremely short of breath with dyspnea on exertion and orthopnea. She did not have chest pain. She does not have any nausea or vomiting. The patient has been home about a month since she had a 6 night hospitalization in [place] for sepsis following UTI. She is on Macrodantin since her discharge. She is supposed to continue a prophylactic dose of Macrodantin until she sees her doctor in follow-up. Her UTI is complicated by urethral obstruction and she actually has had a stent placed removed and now it is in place again. The patient has a history of coronary vessel disease. She also had fluid around the lung and pneumonia while she was in the hospital last month. At that time she had a brief course of furosemide but is not on that at this point. Review of systems: As per history of present illness and below otherwise all systems reviewed and negative. Past medical history: As per history of present illness and as reviewed below otherwise noncontributory. Surgical history: As per history of present illness and as reviewed below otherwise noncontributory. Social history: No reported history of drug or alcohol abuse. Family history: As per history of present illness and as reviewed below otherwise noncontributory. Physical exam: Constitutional - well developed, well-nourished and in no acute distress HEENT - normocephalic, no evidence of trauma - external nose and mouth normal - no mass in neck and no JVD - mucosae moist EYES - full EOM, PERRL, no icterus - no evidence of inflammation, injection, or drainage Respiratory - no respiratory distress, equal bilateral expansion, lungs clear to auscultation and no abnormal lung sounds Cardiovascular - Regular Rhythm with S1 and S2 appreciated and no murmur, gallop or rub. GI - abdomen soft without distension or organomegaly - normal bowel sounds - no guard or rebound Musculoskeletal no gross deformity of long bones or joints - no tenderness, however there is 2+ pitting edema in both lower extremities Neurologic - Alert and oriented times four - CN II-XII grossly intact - motor sensory and coordination symmetrically normal Psychiatric - appropriate mood and affect with normal thought content Hematologic - No petechiae or purpura - mucosa appropriate color and sclera not pale - normal nail bed color and refill Integument - no rash or evidence of trauma - normal turgor Diagnostics: [] Therapeutics: [] Impression: [] Plan: [] Definitive disposition and diagnosis as appropriate pending reevaluation and review of above. - Related Data Allergies Allergy/AdvReac Type Severity Reaction Status Date / Time aspirin Allergy Stomach Verified 09/22/21 22:34 Upset cefazolin Allergy Itching Verified 09/22/21 22:34 Penicillins Allergy Rash Verified 09/22/21 22:34 Home Meds: Home Meds Metoprolol Tartrate [Lopressor] 25 mg PO BID 04/15/14 [History] Venlafaxine [Effexor XR] 75 mg PO QAM 04/15/14 [History] Pantoprazole Sodium 20 mg PO QAM 11/15/15 [History] Rosuvastatin [Crestor] 20 mg PO DAILY 09/11/18 [History] Albuterol Sulfate [Albuterol Sulfate Hfa] 1 dose PO DAILY 09/22/21 [History] Nitrofurantoin Ware/Macrocryst [Nitrofurantoin Ware-MCR] 100 mg PO DAILY 09/22/21 [History] predniSONE [Prednisone] 40 mg PO DAILY 5 Days #10 tablet 09/23/21 [Rx] Past Medical History HEENT History: Reports: Impaired Vision Other HEENT History: wears glasses, has upper and lower dentures Cardiovascular History: Reports: Blood Clots/VTE/DVT, CAD, High Cholesterol, Hypertension, Stents Respiratory History: Reports: COPD, Sleep Apnea Other Respiratory History: not using CPAP Gastrointestinal History: Reports: Cholelithiasis, Chronic Diarrhea, GERD, Hiatal Hernia, Irritable Bowel Syndrome Genitourinary History: Reports: Renal Calculus 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: Musculoskeletal History: Reports: Back Pain, Chronic, Fracture, Osteoarthritis, Osteoporosis Other Musculoskeletal History: hx of fx elbow, no surgical intervention Neurological History: Reports: None Psychiatric History: Reports: Anxiety Endocrine/Metabolic History: Reports: Obesity/BMI 30+ Insulin Pump Model and Gun Number: None Hematologic History: Reports: None Immunologic History: Reports: None Oncologic (Cancer) History: Reports: None Dermatologic History: Reports: None - Infectious Disease History Infectious Disease History: Reports: None - Past Surgical History Head Surgeries/Procedures: Reports: None HEENT Surgical History: Reports: Tonsillectomy, Other (See Below) Other HEENT Surgeries/Procedures: hx of right ear Stapendectomy Cardiovascular Surgical History: Reports: Coronary Artery Bypass, Other (See Below) Other Cardiovascular Surgeries/Procedures: right femoral stent Respiratory Surgical History: Reports: None GI Surgical History: Reports: Cholecystectomy, Other (See Below) Other GI Surgeries/Procedures: hx of Vagotomy and Pyloroplasty Female Surgical History: Reports: Hysterectomy, Lithotripsy/ESWL, Tubal Ligation Endocrine Surgical History: Reports: None Neurological Surgical History: Reports: None Musculoskeletal Surgical History: Reports: None, Knee Replacement Oncologic Surgical History: Reports: None - History Comment History Comment: denies etoh Social & Family History - Family History Family Medical History: No Pertinent Family History - Caffeine Use Caffeine Use: Reports: Soda Other Caffeine Use: daily ED ROS GENERAL - Review of Systems Review Of Systems: Comprehensive ROS is negative, except as noted in HPI. ED EXAM, GENERAL - Physical Exam Exam: See Below Free Text/Narrative:: My physical exam is in the HPI #1 Interpretation EKG Interpretation Comments: EKG performed 09/22/2021 at 10:31 PM shows sinus rhythm heart rate 99 UT 121 QT duration 416 axis 70 nonspecific T abnormalities in the lateral leads both limb and precordial. Compared to 08/13/2021 no change impression no acute injury Course - Vital Signs Last Recorded V/S: Last Vital Signs Temp 36.9 C 09/22/21 22:37 Pulse 92 09/23/21 00:33 Resp 18 09/23/21 00:33 BP 166/75 H 09/23/21 00:33 Pulse Ox 96 09/23/21 00:33 - Orders/Labs/Meds Orders: Active Orders 24 hr Category Date Time Status Sodium Chloride 0.9% [Saline Flush] Med 09/22/21 22:57 Active 10 ml FLUSH ASDIRECTED PRN Sodium Chloride 0.9% [Saline Flush] Med 09/22/21 22:57 Active 2.5 ml FLUSH ASDIRECTED PRN Saline Lock Insert [OM.PC] Stat Oth 09/22/21 22:57 Ordered Medication Orders Sodium Chloride (Sodium Chloride 0.9% 10 Ml Syringe) 10 ml FLUSH ASDIRECTED PRN PRN Reason: Keep Vein Open Last Admin: 09/23/21 00:13 Dose: 10 ml Documented by: KAVITA Sodium Chloride (Sodium Chloride 0.9% 2.5 Ml Syringe) 2.5 ml FLUSH ASDIRECTED PRN PRN Reason: Keep Vein Open Last Admin: 09/23/21 00:12 Dose: 2.5 ml Documented by: KAVITA Labs: Laboratory Tests 09/22/21 09/22/21 09/22/21 Range/Units 23:12 23:54 23:54 WBC 10.96 (4.0-11.0) K/uL RBC 4.73 (4.30-5.90) M/uL Hgb 13.6 (12.0-16.0) g/dL Hct 41.7 (36.0-46.0) % MCV 88.2 (80.0-98.0) fL MCH 28.8 (27.0-32.0) pg MCHC 32.6 (31.0-37.0) g/dL RDW Std Deviation 53.1 (28.0-62.0) fl RDW Coeff of Jesus 16 H (11.0-15.0) % Plt Count 187 (150-400) K/uL MPV 10.10 (7.40-12.00) fL Neut % (Auto) 83.9 H (48.0-80.0) % Lymph % (Auto) 7.3 L (16.0-40.0) % Ware % (Auto) 6.1 (0.0-15.0) % Eos % (Auto) 2.6 (0.0-7.0) % Baso % (Auto) 0.1 (0.0-1.5) % Neut # (Auto) 9.2 H (1.4-5.7) K/uL Lymph # (Auto) 0.8 (0.6-2.4) K/uL Ware # (Auto) 0.7 (0.0-0.8) K/uL Eos # (Auto) 0.3 (0.0-0.7) K/uL Baso # (Auto) 0.0 (0.0-0.1) K/uL Nucleated RBC % 0.0 /100WBC Nucleated RBCs # 0 K/uL Sodium 141 (136-145) mmol/L Potassium 4.3 (3.5-5.1) mmol/L Chloride 102 (98-107) mmol/L Carbon Dioxide 29.8 (21.0-32.0) mmol/L BUN 9 (7.0-18.0) mg/dL Creatinine 1.0 (0.6-1.0) mg/dL Est Cr Clr Drug Dosing 34.38 mL/min Estimated GFR (MDRD) 53.9 ml/min Glucose 145 H (74-106) mg/dL Calcium 8.8 (8.5-10.1) mg/dL Magnesium 1.6 L (1.8-2.4) mg/dL Total Bilirubin 0.6 (0.2-1.0) mg/dL AST 10 L (15-37) IU/L ALT 15 (14-63) IU/L Alkaline Phosphatase 108 (46-116) U/L Troponin I < 0.050 (0.000-0.056) ng/mL B-Natriuretic Peptide (<100) PG/ML Total Protein 7.0 (6.4-8.2) g/dL Albumin 3.0 L (3.4-5.0) g/dL Globulin 4.0 (2.6-4.0) g/dL Albumin/Globulin Ratio 0.8 L (0.9-1.6) Urine Color YELLOW Urine Appearance SLT CLOUDY Urine pH 5.5 (5.0-8.0) Ur Specific Raw[place]ins 1.025 (1.001-1.035) Urine Protein NEGATIVE (NEGATIVE) mg/dL Urine Glucose (UA) NEGATIVE (NEGATIVE) mg/dL Urine Ketones NEGATIVE (NEGATIVE) mg/dL Urine Occult Blood LARGE H (NEGATIVE) Urine Nitrite NEGATIVE (NEGATIVE) Urine Bilirubin NEGATIVE (NEGATIVE) Urine Urobilinogen 0.2 (<2.0) EU/dL Ur Leukocyte Esterase SMALL H (NEGATIVE) Urine RBC 5-10 (0-2/HPF) Urine WBC 3-7 (0-5/HPF) Ur Epithelial Cells FEW (NONE-FEW) Urine Bacteria FEW (NEGATIVE) Urinalysis Comment Influenza Type A RNA (NEGATIVE) Influenza Type B RNA (NEGATIVE) SARS-CoV-2 RNA (JOSE) (NEGATIVE) 12/16/21 12/17/21 Range/Units 23:54 00:30 WBC (4.0-11.0) K/uL RBC (4.30-5.90) M/uL Hgb (12.0-16.0) g/dL Hct (36.0-46.0) % MCV (80.0-98.0) fL MCH (27.0-32.0) pg MCHC (31.0-37.0) g/dL RDW Std Deviation (28.0-62.0) fl RDW Coeff of Jesus (11.0-15.0) % Plt Count (150-400) K/uL MPV (7.40-12.00) fL Neut % (Auto) (48.0-80.0) % Lymph % (Auto) (16.0-40.0) % Ware % (Auto) (0.0-15.0) % Eos % (Auto) (0.0-7.0) % Baso % (Auto) (0.0-1.5) % Neut # (Auto) (1.4-5.7) K/uL Lymph # (Auto) (0.6-2.4) K/uL Ware # (Auto) (0.0-0.8) K/uL Eos # (Auto) (0.0-0.7) K/uL Baso # (Auto) (0.0-0.1) K/uL Nucleated RBC % /100WBC Nucleated RBCs # K/uL Sodium (136-145) mmol/L Potassium (3.5-5.1) mmol/L Chloride (98-107) mmol/L Carbon Dioxide (21.0-32.0) mmol/L BUN (7.0-18.0) mg/dL Creatinine (0.6-1.0) mg/dL Est Cr Clr Drug Dosing mL/min Estimated GFR (MDRD) ml/min Glucose (74-106) mg/dL Calcium (8.5-10.1) mg/dL Magnesium (1.8-2.4) mg/dL Total Bilirubin (0.2-1.0) mg/dL AST (15-37) IU/L ALT (14-63) IU/L Alkaline Phosphatase (46-116) U/L Troponin I (0.000-0.056) ng/mL B-Natriuretic Peptide 103 H (<100) PG/ML Total Protein (6.4-8.2) g/dL Albumin (3.4-5.0) g/dL Globulin (2.6-4.0) g/dL Albumin/Globulin Ratio (0.9-1.6) Urine Color Urine Appearance Urine pH (5.0-8.0) Ur Specific Raw[place]ins (1.001-1.035) Urine Protein (NEGATIVE) mg/dL Urine Glucose (UA) (NEGATIVE) mg/dL Urine Ketones (NEGATIVE) mg/dL Urine Occult Blood (NEGATIVE) Urine Nitrite (NEGATIVE) Urine Bilirubin (NEGATIVE) Urine Urobilinogen (<2.0) EU/dL Ur Leukocyte Esterase (NEGATIVE) Urine RBC (0-2/HPF) Urine WBC (0-5/HPF) Ur Epithelial Cells (NONE-FEW) Urine Bacteria (NEGATIVE) Urinalysis Comment Influenza Type A RNA NEGATIVE (NEGATIVE) Influenza Type B RNA NEGATIVE (NEGATIVE) SARS-CoV-2 RNA (JOSE) NEGATIVE (NEGATIVE) Meds: Medications Generic Name Dose Route Start Last Admin Trade Name Freq PRN Reason Stop Dose Admin Sodium Chloride 10 ml 09/22/21 22:57 09/23/21 00:13 Sodium Chloride 0.9% 10 Ml Syringe FLUSH 10 ml ASDIRECTED PRN Administration Keep Vein Open Sodium Chloride 2.5 ml 09/22/21 22:57 09/23/21 00:12 Sodium Chloride 0.9% 2.5 Ml Syringe FLUSH 2.5 ml ASDIRECTED PRN Administration Keep Vein Open Discontinued Medications Generic Name Dose Route Start Last Admin Trade Name Freq PRN Reason Stop Dose Admin Acetaminophen 650 mg 09/23/21 00:05 09/23/21 00:11 Acetaminophen 325 Mg Tab PO 09/23/21 00:06 650 mg NOW ONE Administration Prednisone 40 mg 09/23/21 01:21 09/23/21 01:25 Prednisone 20 Mg Tab PO 09/23/21 01:22 40 mg ONETIME ONE Administration - Re-Assessments/Exams Free Text/Narrative Re-Assessment/Exam: 09/23/21 00:06 Patient complains of a headache Free Text/Narrative Re-Assessment/Exam: 09/23/21 01:26 Patient tolerates ambulation well and has a saturation of 91%. It appears she got better after 2 inhales on her albuterol. She has an exacerbation of COPD Covid is negative as is influenza. Departure - Departure Time of Disposition: 01:27 Disposition: Home, Self-Care 01 Condition: Good Clinical Impression: COPD exacerbation - Discharge Information Prescriptions: predniSONE [Prednisone] 40 mg PO DAILY 5 Days #10 tablet Instructions: Chronic Obstructive Pulmonary Disease, [id number] Referrals: PCP,None [Primary Care Provider] - Forms: ED Department Discharge Additional Instructions: Prescription for prednisone was sent [facility]. Get plenty of rest. Drink plenty of fluids. [facility] - Primary [facility] [address] [place] [id number] [id number] The following information is given to patients seen in the emergency department who are being discharged to home. This information is to outline your options for follow-up care. We provide all patients seen in our emergency department with a follow-up referral. The need for follow-up, as well as the timing and circumstances, are variable depending upon the specifics of your emergency department visit. If you don't have a primary care physician on staff, we will provide you with a referral. We always advise you to contact your personal physician following an emergency department visit to inform them of the circumstance of the visit and for follow-up with them and/or the need for any referrals to a consulting specialist. The emergency department will also refer you to a specialist when appropriate. This referral assures that you have the opportunity for follow-up care with a specialist. All of these measure are taken in an effort to provide you with optimal care, which includes your follow-up. Under all circumstances we always encourage you to contact your private physician who remains a resource for coordinating your care. When calling for follow-up care, please make the office aware that this follow-up is from your recent emergency room visit. If for any reason you are refused follow-up, please contact the [facility] Emergency Department at and asked to speak to the emergency department charge nurse. Sepsis Event Note (ED) - Focused Exam Vital Signs: Vital Signs Temp Pulse Resp BP Pulse Ox 09/23/21 00:33 92 18 166/75 H 96 09/22/21 23:49 101 H 18 164/81 H 93 L 09/22/21 22:37 36.9 C 102 H 18 182/75 H 94 L - My Orders Last 24 Hours: My Active Orders 09/22/21 22:57 Sodium Chloride 0.9% [Saline Flush] 10 ml FLUSH ASDIRECTED PRN Sodium Chloride 0.9% [Saline Flush] 2.5 ml FLUSH ASDIRECTED PRN Saline Lock Insert [OM.PC] Stat - Assessment/Plan Last 24 Hours: My Active Orders 09/22/21 22:57 Sodium Chloride 0.9% [Saline Flush] 10 ml FLUSH ASDIRECTED PRN Sodium Chloride 0.9% [Saline Flush] 2.5 ml FLUSH ASDIRECTED PRN Saline Lock Insert [OM.PC] Stat
[2021-09-22] MEDS ORDERED: Sodium Chloride 0.9% 10 ML Syringe FLUSH PRN (22:57)
[2021-09-22] MEDS ORDERED: Sodium Chloride 0.9% 2.5 ML Syringe FLUSH PRN (22:57)
--- NOTE | 2021-09-22 23:29 | CR ---
INDICATION: Weakness and dyspnea TECHNIQUE: Chest radiograph 1 view COMPARISON: 09/19/2018 FINDINGS: The sensitivity and specificity of the exam are severely limited by the patient`s body habitus. Mediastinum: Previous median sternotomy and coronary artery bypass grafting (CABG) noted. The central pulmonary arteries are enlarged and likely due to pulmonary hypertension. Moderate cardiomegaly is noted without interval change. Lung: Mild diffuse interstitial opacities are present bilaterally without interval change which may be due to underlying interstitial lung disease. No sign of pleural effusion seen. No pneumothorax is identified. Bone and Soft tissue: Unremarkable for age. IMPRESSIONS: 1. Moderate cardiomegaly is noted without interval change. 2. Mild diffuse interstitial opacities are present bilaterally without interval change which may be due to underlying interstitial lung disease. 3. The central pulmonary arteries are enlarged and likely due to pulmonary hypertension. Dictated by Preston Bajwa MD @ 09/22/2021 11:28:02 PM Dictated by: Preston Bajwa MD @ 09/22/2021 23:28:08 (Electronically Signed)
[2021-09-23] MEDS ORDERED: Acetaminophen 325 MG Tab PO ONE (00:05)
[2021-09-23 00:25] LABS: BLOOD UREA NITROGEN,BUN 9 mg/dL (7.0-18.0); CARBON DIOXIDE,CO2 29.8 mmol/L (21.0-32.0); CHLORIDE,CL 102 mmol/L (98-107); GLUCOSE RANDOM 145 mg/dL (74-106); POTASSIUM,K 4.3 mmol/L (3.5-5.1); SODIUM,NA 141 mmol/L (136-145)
[2021-09-23 01:16] LABS: CORONAVIRUS COVID-19 NAA NEGATIVE (NEGATIVE); INFLUENZA A NAA NEGATIVE (NEGATIVE); INFLUENZA B NAA NEGATIVE (NEGATIVE)
[2021-09-23] MEDS ORDERED: predniSONE 20 MG Tab PO ONE (01:21)
[2021-09-23 01:28] VITALS: BP 172/61; PULSE 102
== END 2021-09-23 01:29 | disposition home or self-care (01) ==
LOC: MW.ED 22:23
DX: J44.1 Chronic obstructive pulmonary disease with (acute) exacerbation (principal); I25.10 Atherosclerotic heart disease of native coronary artery without angina pectoris; E78.00 Pure hypercholesterolemia, unspecified; I10 Essential (primary) hypertension; K21.9 Gastro-esophageal reflux disease without esophagitis; E66.9 Obesity, unspecified; M19.90 Unspecified osteoarthritis, unspecified site; Z95.5 Presence of coronary angioplasty implant and graft; Z68.36 Body mass index [BMI] 36.0-36.9, adult; Z79.899 Other long term (current) drug therapy; Z20.822 Contact with and (suspected) exposure to COVID-19
CPT/HCPCS: 0240U; 36415; 71045; 80053; 81001; 83735; 83880; 84484; 85025; 93005; 99285; A9270

== ENCOUNTER 2023-06-13 21:06 | Emergency (ER) | payer MEDICARE, BC ==
[2023-06-13 22:40] LABS: BILIRUBIN,URINE NEGATIVE (NEGATIVE); COLOR,URINE YELLOW; GLUCOSE,URINE NEGATIVE (NEGATIVE); KETONES,URINE NEGATIVE (NEGATIVE); LEUKOCYTE ESTERASE,URINE NEGATIVE (NEGATIVE); NITRITE,URINE NEGATIVE (NEGATIVE); OCCULT BLOOD,URINE TRACE-INTACT (NEGATIVE); PROTEIN,URINE NEGATIVE (NEGATIVE); UROBILINOGEN,URINE 0.2 EU/dL (<2.0)
[2023-06-13] MEDS ORDERED: Ondansetron 4 MG/2 ML SDV IVPUSH ONE (22:46)
[2023-06-13] MEDS ORDERED: Morphine 4 MG/ML Syringe IVPUSH ONE (22:46)
[2023-06-13 22:51] LABS: APPEARANCE,URINE HAZY
[2023-06-13 22:52] LABS: BACTERIA,URINE NOT SEEN (NEGATIVE); EPITHELIAL CELLS,URINE FEW (NONE-FEW); WBC,URINE 0-1 (0-5/HPF)
[2023-06-13] MEDS ORDERED: Lactated Ringers 1,000 ML IV SCH (23:00)
[2023-06-13 23:14] LABS: BASOPHILS PERCENT AUTO 0.2 % (0.0-1.5); EOSINOPHILS ABSOLUTE AUTO 0.1 K/uL (0.0-0.7); EOSINOPHILS PERCENT AUTO 0.6 % (0.0-7.0); HEMATOCRIT 42.9 % (36.0-46.0); HEMOGLOBIN 13.7 g/dL (12.0-16.0); LYMPHOCYTES ABSOLUTE AUTO 1.2 K/uL (0.6-2.4); LYMPHOCYTES PERCENT AUTO 12.4 % (16.0-40.0); MEAN CORPUSCULAR HEMOGLOBIN 28.4 pg (27.0-32.0); MEAN CORPUSCULAR HGB CONC 31.9 g/dL (31.0-37.0); MEAN CORPUSCULAR VOLUME 88.8 fL (80.0-98.0); MONOCYTES ABSOLUTE AUTO 0.6 K/uL (0.0-0.8); MONOCYTES PERCENT AUTO 6.6 % (0.0-15.0); NEUTROPHILS ABSOLUTE AUTO 7.4 K/uL (1.4-5.7); NEUTROPHILS PERCENT AUTO 80.2 % (48.0-80.0); NRBC ABSOLUTE 0 K/uL; PLATELET COUNT,PLT 215 K/uL (150-400); RED BLOOD CELL COUNT 4.83 M/uL (4.30-5.90); WHITE BLOOD CELL COUNT,WBC 9.24 K/uL (4.0-11.0)
[2023-06-13 23:44] LABS: LACTIC ACID 0.7 mmol/L (0.4-2.0)
[2023-06-13 23:50] LABS: A/G RATIO 0.8 (0.9-1.6); BILIRUBIN TOTAL 0.6 mg/dL (0.2-1.0); CALCIUM 8.5 mg/dL (8.5-10.1); CARBON DIOXIDE,CO2 29.4 mmol/L (21.0-32.0); CREATININE 1.4 mg/dL (0.6-1.0); EST CRCL DRUG DOSING (CG) 24.17 mL/min; POTASSIUM,K 4.4 mmol/L (3.5-5.1); PROTEIN TOTAL,TP 6.9 g/dL (6.4-8.2)
[2023-06-14] MEDS ORDERED: Iopamidol 755 MG/ML 500 ML Multipack Bottle IVPUSH ONE
[2023-06-14] MEDS ORDERED: Ciprofloxacin 500 MG Tab PO ONE (00:48)
[2023-06-14] MEDS ORDERED: metroNIDAZOLE 250 MG Tab PO ONE (00:48)
[2023-06-14] MEDS ORDERED: Ondansetron 4 MG Tab PO ONE (01:08)
[2023-06-14] MEDS ORDERED: oxyCODONE 5 MG Tab PO ONE (01:08)
[2023-06-14] MEDS ORDERED: Acetaminophen 325 MG Tab PO ONE (01:09)
[2023-06-14 02:51] VITALS: BP 150/66; PULSE 74
== END 2023-06-14 02:51 | disposition home or self-care (01) ==
LOC: MW.ED 21:06
DX: K57.32 Diverticulitis of large intestine without perforation or abscess without bleeding (principal); I25.10 Atherosclerotic heart disease of native coronary artery without angina pectoris; I10 Essential (primary) hypertension; E78.00 Pure hypercholesterolemia, unspecified; J44.9 Chronic obstructive pulmonary disease, unspecified; K21.9 Gastro-esophageal reflux disease without esophagitis; E66.9 Obesity, unspecified; Z68.38 Body mass index [BMI] 38.0-38.9, adult; Z88.0 Allergy status to penicillin; Z88.1 Allergy status to other antibiotic agents; Z88.8 Allergy status to other drugs, medicaments and biological substances; Z79.899 Other long term (current) drug therapy; Z20.822 Contact with and (suspected) exposure to COVID-19
CPT/HCPCS: 36415; 71045; 74177; 80053; 81001; 83605; 83690; 84484; 85025; 93005; 96361; 96374; 96375; 99284; A9270; J2270; J2405; J7120; Q9967; U0002

== ENCOUNTER 2023-10-20 06:18 | Emergency (ER) | payer MEDICARE, BC ==
[2023-10-20] MEDS ORDERED: Sodium Chloride 0.9% 10 ML Syringe FLUSH PRN (06:28)
[2023-10-20] MEDS ORDERED: Sodium Chloride 0.9% 2.5 ML Syringe FLUSH PRN (06:28)
[2023-10-20 06:37] LABS: BASOPHILS ABSOLUTE AUTO 0.03 K/uL (0.00-0.20); BASOPHILS PERCENT AUTO 0.4 % (0.0-1.0); EOSINOPHILS ABSOLUTE AUTO 0.07 K/uL (0.00-0.45); EOSINOPHILS PERCENT AUTO 0.9 % (0.0-6.0); HEMATOCRIT 42.3 % (37.0-47.0); HEMOGLOBIN 13.4 g/dL (12.0-16.0); IMMATURE GRAN ABSOLUTE AUTO 0.03 K/uL (0.00-0.05); IMMATURE GRAN PERCENT AUTO 0.4 % (0.0-0.4); LYMPHOCYTES ABSOLUTE AUTO 1.45 K/uL (1.00-4.80); LYMPHOCYTES PERCENT AUTO 18.1 % (24.0-44.0); MEAN CORPUSCULAR HEMOGLOBIN 27.6 pg (28.0-32.0); MEAN CORPUSCULAR HGB CONC 31.7 g/dL (32.0-36.0); MEAN CORPUSCULAR VOLUME 87.2 fL (83.0-99.0); MEAN PLATELET VOLUME 9.9 fL (9.4-12.3); MONOCYTES ABSOLUTE AUTO 0.49 K/uL (0.00-0.80); MONOCYTES PERCENT AUTO 6.1 % (0.0-8.0); NEUTROPHILS ABSOLUTE AUTO 5.93 K/uL (1.80-7.70); NEUTROPHILS PERCENT AUTO 74.1 % (41.0-71.0); PLATELET COUNT,PLT 240 K/uL (150-400); RED BLOOD CELL COUNT 4.85 M/uL (4.10-5.30)
[2023-10-20 06:58] LABS: APPEARANCE,URINE CLOUDY; BILIRUBIN,URINE NEGATIVE (NEGATIVE); COLOR,URINE YELLOW; GLUCOSE,URINE NEGATIVE (NEGATIVE); KETONES,URINE NEGATIVE (NEGATIVE); LEUKOCYTE ESTERASE,URINE SMALL (NEGATIVE); NITRITE,URINE NEGATIVE (NEGATIVE); OCCULT BLOOD,URINE LARGE (NEGATIVE); PH,URINE 5.5 (5.0-8.0); PROTEIN,URINE NEGATIVE (NEGATIVE); UROBILINOGEN,URINE 0.2 EU/dL (<2.0)
[2023-10-20 07:00] LABS: A/G RATIO 0.7 (0.9-1.6); ALBUMIN 2.8 g/dL (3.4-5.0); BILIRUBIN TOTAL 0.3 mg/dL (0.2-1.0); CALCIUM 8.3 mg/dL (8.5-10.1); CARBON DIOXIDE,CO2 26.8 mmol/L (21.0-32.0); CREATININE 1.7 mg/dL (0.6-1.0); EST CRCL DRUG DOSING (CG) 19.59 mL/min; POTASSIUM,K 3.5 mmol/L (3.5-5.1); PROTEIN TOTAL,TP 6.8 g/dL (6.4-8.2)
[2023-10-20 07:09] LABS: BACTERIA,URINE FEW (NEGATIVE); EPITHELIAL CELLS,URINE FEW (NONE-FEW)
[2023-10-20 07:18] LABS: INR 1.08 (0.86-1.11)
[2023-10-20 08:43] LABS: CANDIDA DNA PROBE NEGATIVE (NEGATIVE); GARDNERELLA DNA PROBE NEGATIVE (NEGATIVE); TRICHOMONAS DNA PROBE NEGATIVE (NEGATIVE)
[2023-10-20] MEDS ORDERED: Iopamidol 755 Mg/ML 100 ML Bottle IVPUSH ONE (09:44)
[2023-10-20 11:05] VITALS: BP 187/78; PULSE 74
[2023-10-29 21:11] LABS: C. TRACHOMATIS BY PCR NOT DETECTED; N. GONORRHOEAE BY PCR NOT DETECTED
== END 2023-10-20 11:03 | disposition home or self-care (01) ==
LOC: MW.ED 06:18
DX: N93.9 Abnormal uterine and vaginal bleeding, unspecified (principal); I25.10 Atherosclerotic heart disease of native coronary artery without angina pectoris; K21.9 Gastro-esophageal reflux disease without esophagitis; E78.00 Pure hypercholesterolemia, unspecified; J44.9 Chronic obstructive pulmonary disease, unspecified; I10 Essential (primary) hypertension; E66.9 Obesity, unspecified; Z68.37 Body mass index [BMI] 37.0-37.9, adult; Z90.49 Acquired absence of other specified parts of digestive tract; Z90.710 Acquired absence of both cervix and uterus; Z88.0 Allergy status to penicillin; Z88.6 Allergy status to analgesic agent; Z88.1 Allergy status to other antibiotic agents; Z79.899 Other long term (current) drug therapy; Z79.82 Long term (current) use of aspirin
CPT/HCPCS: 36415; 74177; 76830; 80053; 81001; 85025; 85610; 87480; 87491; 87510; 87591; 87660; 99284; J3490; Q9967